=== PATIENT | male | born 1945 | race Caucasian/White ===

== ENCOUNTER → 2018-03-19 | Outpatient (CLI) | payer OTHER ==
[~2018-03-19] MED LIST: BUDE10.2 IH; GLIP5TAB13 PO; ISOS30TA3 PO; LISI-556 PO; METF10002 PO; METO100T12 PO; SIMV80TA5 PO
--- NOTE | 2018-03-19 12:17 | Diagnostic Imaging Report ---
EXAMINATION: PA and lateral chest at 10:41 AM. INDICATION: Shortness of breath. COMPARISON: There are no prior studies available for comparison. FINDINGS: Heart size is within normal limits. There is an area of increased density near the apex of the heart. I suspect that this is due to an epicardial fat pad. There are a few crowded bronchovascular markings in the right infrahilar region but there is no evidence for pneumonia. There is no sign of failure or a pleural effusion either. The mediastinum is not widened. The osseous structures are intact. IMPRESSION: 1. There is no evidence for an acute cardiopulmonary abnormality. 2. If clinical concern regarding an underlying abnormality persists and further imaging is desired, then CT of the chest would be recommended. Dictated by: Dictated on workstation # [id number]
== END ==
LOC: RAD 10:08
PROVIDERS: ATTEND Nurse Practitioner Family
DX: R06.2 Wheezing (principal); Z87.891 Personal history of nicotine dependence
CPT/HCPCS: 71046

== ENCOUNTER 2018-04-09 11:15 | Outpatient (CLI) | payer OTHER ==
[~2018-04-09] VITALS: Ht 182.9 cm; Wt 104.8 kg
[2018-04-09] MEDS ORDERED: METF10002 PO (11:16)
[2018-04-09] MEDS ORDERED: ISOS30TA3 PO (11:16)
[2018-04-09] MEDS ORDERED: LISI-556 PO (11:16)
[2018-04-09] MEDS ORDERED: SIMV80TA5 PO (11:16)
[2018-04-09] MEDS ORDERED: METO100T12 PO (11:16)
[2018-04-09] MEDS ORDERED: GLIP5TAB13 PO (11:16)
[2018-04-09] MEDS ORDERED: BUDE10.2 IH (11:16)
== END 2018-04-09 11:20 ==
LOC: PREOP 11:15
PROVIDERS: ATTEND Surgery
DX: Z01.818 Encounter for other preprocedural examination (principal)